=== PATIENT | male | born 1965 | race Caucasian/White ===

== ENCOUNTER → 2017-12-16 | Outpatient (CLI) | payer OTHER ==
[~2017-12-16] MED LIST: ASPI81TA28 PO
--- NOTE | 2017-12-16 17:22 | DIAGNOSTIC IMAGING REPORT ---
SINUSES-MAXILLOFACIAL W/O CT DOSE: 592.94 mGy.cm HISTORY: Sinusitis left maxillary sinusitis TECHNIQUE: Multiaxial CT images of the paranasal sinuses were performed and reformatted in the coronal plane without the use of contrast. A dose lowering technique was utilized adhering to the principles of ALARA. COMPARISON: None. FINDINGS: Moderate mucosal thickening dependent left maxillary sinus. Moderate mucosal narrowing of the ostiomeatal units bilaterally. Moderate hyperplastic changes the nasal turbinates. Mild mucosal thickening of the ethmoid and frontal air cells. No significant bony destructive process. The nasal septum is midline. The orbits are unremarkable. IMPRESSION: 1. Moderate mucosal thickening of the left maxillary sinus, as well as ethmoid and frontal sinuses. 2. Considerable soft tissue narrowing of the ostiomeatal units bilaterally. 3. Hyperplastic changes the nasal turbinates bilaterally. The above report was generated using voice recognition software. It may contain grammatical, syntax or spelling errors. Electronically signed by: Antonio Landaverde M.D. 12/16/2017 5:20 PM Dictated Date/Time: 12/16/2017 5:17 PM
== END | disposition home or self-care (01) ==
LOC: C.CTS 16:17
PROVIDERS: ATTEND Family Medicine
DX: J32.0 Chronic maxillary sinusitis (principal)